=== PATIENT | male | born 1975 | race Two or more races ===

== ENCOUNTER 2024-09-05 07:23 | Outpatient (CLI) | payer OTHER ==
[2024-09-05 09:59] LABS: Chloride 105 mmol/L (98-107); Potassium 4.3 mmol/L (3.5-5.1); Sodium 143 mmol/L (136-145)
[2024-09-05 10:00] LABS: Anion Gap 9 (5-15); Carbon Dioxide 29 mmol/L (20-31)
[2024-09-05 10:04] LABS: Calcium 10.5 mg/dL (8.7-10.4)
[2024-09-05 10:05] LABS: BUN/Creatinine Ratio 8.5 (10.0-20.0); Blood Urea Nitrogen 10 mg/dL (9-23); Glucose 92 mg/dL (74-106)
[2024-09-05] MEDS ORDERED: IOHEXOL 300 MG/ML 100ML BOTTLE IJ ONE (10:33)
--- NOTE | 2024-09-05 12:33 | DVH ---
Indication: ENLARGING MASS ON THE RIG Technique: CT axial images of the neck are obtained with intravenous contrast. Coronal and sagittal reformats were obtained. Radiation Dose Information: CTDI volume is 24.5 mGy. Dose-length product is 827 mGy*cm Comparison: None FINDINGS: The parotid, it instructor and parapharyngeal spaces are preserved. Submandibular glands unremarkable.m Orbits and retrobulbar spaces unremarkable. Right submandibular lymph nodes measuring up to 9 mm. Lef t submandibular lymph nodes measuring up to 7 mm. Submental lymph nodes measuring up to 8 mm. Nasopharynx, oropharynx, hypopharynx patent. Epiglottis, aryepiglottic folds unremarkable. Mastoids well pneumatized. Paranasal sinuses demonstrate mucosal thickening left maxillary sinus Right cervical jugulodigastric lymph nodes measuring up to 6 mm. Left cervical jugulodigastric lymph nodes up to 8 mm. Thyroid gland unremarkable. [id number]-[id number] cervical degenerative disc disease. IMPRESSION: Scattered neck lymph nodes as described. No identifiable neck mass. If further evaluation desired, MRI of the neck with and without contrast can be obtained.
== END 2024-09-05 17:00 | disposition home or self-care (01) ==
LOC: CT 07:23
DX: R22.1 Localized swelling, mass and lump, neck (principal); J34.89 Other specified disorders of nose and nasal sinuses; M50.30 Other cervical disc degeneration, unspecified cervical region; D17.9 Benign lipomatous neoplasm, unspecified; L98.8 Other specified disorders of the skin and subcutaneous tissue; K57.90 Diverticulosis of intestine, part unspecified, without perforation or abscess without bleeding
CPT/HCPCS: 36415; 70491; 80048; Q9967